=== PATIENT | female | born 1945 | race American Indian/Alaskan Native ===

== ENCOUNTER 2019-05-10 23:44 | Observation (INO) | payer MEDICARE ==
[2019-05-11] MEDS ORDERED: NACL 0.9% 500 ML 500 ML IV ONE (00:06)
[2019-05-11] MEDS ORDERED: KEPPRA 1,000 MG/NS 0.75% 100ML 1,000 MG/100 ML BAG IV ONE (00:07)
[2019-05-11] MEDS ORDERED: ATIVAN IV PRN ×3 (00:08)
--- NOTE | 2019-05-11 00:11 | Emergency Department Report ---
ED General Adult HPI - General Chief complaint: Altered Mental Status Stated complaint: AMS Time Seen by Provider: 05/10/19 23:59 Source: patient, EMS (verbal report received from EMS.ems notes not available at time of chart dictation), RN notes reviewed, old records reviewed Mode of arrival: Stretcher Limitations: Other (patient does not remember what happened) - History of Present Illness Initial comments: This is a 74-year-old female. The patient is not known to this provider previously. Her past medical history includes alcohol abuse and hypertension. She does not have a primary care doctor. Patient brought to the hospital by emergency medical services. As per EMS, patient had an episode of shaking and unresponsiveness, loss consciousness, subsequently woke up, and was confused. This is now resolved. The patient has no physical pain. The patient does not recall what happened. The patient thinks she may have a distant history of seizures. She is not certain. She indicates she does not take any prescription medications. She reports no physical pain at this time. -: Sudden Consistency: now resolved Improves with: none Worsens with: none Associated Symptoms: confusion, seizure, syncope, weakness - Related Data Previous Rx's Medication Instructions Recorded Last Taken Type Folic Acid [Folvite] 1 mg PO QDAY 30 Days tablet 09/22/16 Unknown Rx Multivit-Min/Iron Fum/Folic AC 1 each PO DAILY 30 Days tablet 09/22/16 Unknown Rx [Qxjul-Awlfoqk-Fprseluj Tablet] Thiamine [Vitamin B-1] 100 mg PO QDAY 30 Days tablet 09/22/16 Unknown Rx traMADol [Ultram 50 MG tab] 50 mg PO Q4HR PRN 20 Days tablet 09/22/16 Unknown Rx Allergies Allergy/AdvReac Type Severity Reaction Status Date / Time No Known Allergies Allergy Unverified 10/22/13 09:31 ED Review of Systems ROS: Stated complaint: AMS Other details as noted in HPI Constitutional: malaise Eyes: denies: eye discharge ENT: denies: epistaxis Respiratory: denies: cough Cardiovascular: syncope Gastrointestinal: denies: abdominal pain, nausea, vomiting, hematemesis, melena, hematochezia Genitourinary: denies: urgency Musculoskeletal: denies: back pain Skin: denies: lesions Neurological: weakness, confusion Psychiatric: anxiety ED Past Medical Hx - Past Medical History Hx Hypertension: No Hx Diabetes: No Hx Liver Disease: Yes Hx Seizures: Yes - Surgical History Additional Surgical History: TUBAL LIGATION - Social History Smoking Status: Never Smoker - Medications Home Medications: Home Medications Medication Instructions Recorded Confirmed Last Taken Type Folic Acid [Folvite] 1 mg PO QDAY 30 Days tablet 09/22/16 Unknown Rx Multivit-Min/Iron Fum/Folic AC 1 each PO DAILY 30 Days tablet 09/22/16 Unknown Rx [Dcokv-Wtnvwzs-Acqffcju Tablet] Thiamine [Vitamin B-1] 100 mg PO QDAY 30 Days tablet 09/22/16 Unknown Rx traMADol [Ultram 50 MG tab] 50 mg PO Q4HR PRN 20 Days tablet 09/22/16 Unknown Rx ED Physical Exam - General Limitations: Other (patient does not remember what happened. Patient appears quite tremulous) General appearance: alert, anxious - Head Head exam: Present: atraumatic, normocephalic - Eye Eye exam: Present: normal appearance, EOMI. Absent: nystagmus - ENT ENT exam: Present: normal orophraynx, mucous membranes dry, normal external ear exam - Neck Neck exam: Present: normal inspection, full ROM. Absent: tenderness, meningismus - Respiratory Respiratory exam: Present: normal lung sounds bilaterally. Absent: respiratory distress - Cardiovascular Cardiovascular Exam: Present: regular rate, normal rhythm, normal heart sounds. Absent: bradycardia, tachycardia, irregular rhythm, systolic murmur, diastolic murmur, rubs, gallop - GI/Abdominal GI/Abdominal exam: Present: soft. Absent: distended, tenderness, guarding, rebound, rigid, pulsatile mass - Extremities Exam Extremities exam: Present: normal inspection, full ROM, pedal edema, other (2+ pulses noted in the bilateral upper, lower extremities. Compartments soft. No long bony tenderness. The pelvis is stable.). Absent: calf tenderness - Back Exam Back exam: Present: normal inspection, full ROM. Absent: tenderness, CVA tenderness (R), CVA tenderness (L), paraspinal tenderness, vertebral tenderness - Neurological Exam Neurological exam: Present: alert, other (Extraocular movements intact. Tongue midline. No facial droop. Facial sensation intact to light touch in the V1, V2, V3 distribution bilaterally. 5 and 5 strength in 4 extremities.. Sensation is intact to light touch in 4 extremities.). Absent: motor sensory deficit - Psychiatric Psychiatric exam: Present: anxious - Skin Skin exam: Present: warm, dry, intact, normal color. Absent: rash ED Course Vital Signs 05/11/19 05/11/19 05/11/19 00:11 00:17 00:32 Temperature 98.0 F 98.0 F Pulse Rate 65 65 Respiratory 13 13 12 Rate Blood Pressure 167/76 Blood Pressure 167/76 [Right] O2 Sat by Pulse 99 99 98 Oximetry - Reevaluation(s) Reevaluation #1: 05/11/19 00:13 Differential diagnosis, including but not limited to: Alcohol withdrawal seizure, pneumonia, urinary tract infection, pulmonary embolism, primary seizure, electrolyte derangement, thyroid derangement Assessment and plan: 74-year-old female with episode of loss of consciousness, now awake, question seizure versus syncope, she reports no pulmonary embolism or DVT risk factors, she appears to be anxious and tremulous, she has tongue fasciculations, I suspect alcohol withdrawal. Screening laboratory studies have been ordered, EKG ordered, CT scan of the brain, cervical spine ordered. Do not suspect pulmonary embolism, however, we will obtain a d-dimer to risk stratify the patient, as she endorses no pulmonary embolism or DVT risk factors. Review of old medical records indicates history of ascites, as well as history of alcohol abuse. Reevaluation #2: 05/11/19 01:23 CT scan of brain, cervical spine negative for acute disease. Laboratory studies show lactic acidosis and anion gap. This is likely secondary to seizure. Suspect alcohol related withdrawal seizure as likely etiology of patient's symptoms. I do not suspect invasive bacterial illness at this point in time. Resting comfortably, and in no acute distress. Reevaluation #3: 05/11/19 02:53 CT angiogram chest negative for acute disease. Initial ciwa score 15 Patient will be admitted to the medical service. The Hospital physician, Dr. Dipak Tipton, has accepted the patient - EJ/Peripheral Line Arm R Time Out Performed: Yes Indications: nurses unable to establis, multiple IV sites needed Skin Cleansed in Sterile Fashion: Yes Size: 20 Dressing Placed: Tegaderm Patient Tolerated Procedure: well ED Medical Decision Making - Lab Data Result diagrams: 05/11/19 00:24 05/11/19 00:24 Vital Signs 05/11/19 05/11/19 05/11/19 00:11 00:17 00:32 Temperature 98.0 F 98.0 F Pulse Rate 65 65 Respiratory 13 13 12 Rate Blood Pressure 167/76 Blood Pressure 167/76 [Right] O2 Sat by Pulse 99 99 98 Oximetry - EKG Data -: EKG Interpreted by Me EKG shows normal: sinus rhythm Rate: normal - EKG Data When compared to previous EKG there are: no significant change 05/11/19 00:50 This is a bradycardic rhythm, 56 bpm, this is a sinus rhythm, normal axis, QTC prolonged, atrial enlargement, poor R progression, T-wave inversion V2, V3, V4, this is an abnormal EKG, this EKG is not consistent with ST elevation myocardial infarction, the EKG appears to be unchanged from prior EKG from 09/18/2016. - Radiology Data Radiology results: pending, image reviewed interpreted by me: X-ray of the chest shows hyperinflated lungs, otherwise, no acute disease. Critical care attestation.: If time is entered above; I have spent that time in minutes in the direct care of this critically ill patient, excluding procedure time. ED Disposition Clinical Impression: Metabolic acidosis, increased anion gap (IAG) Alcohol withdrawal seizure Qualifiers: Complication of substance-induced condition: with unspecified complication Qualified Code(s): F10.239 - Alcohol dependence with withdrawal, unspecified; R56.9 - Unspecified convulsions Disposition: - OP ADMIT IP TO THIS HOSP Is pt being admited?: Yes Condition: Fair Referrals: BRANDON GRIER MD [Primary Care Provider] - 3-5 Days
[2019-05-11 00:47] LABS: Basophils % (Auto) 0.3 % (0.0-1.8); Eosinophils % (Auto) 0.3 % (0.0-4.3); Hematocrit 40.1 % (30.3-42.9); Hemoglobin 13.9 gm/dl (10.1-14.3); Lymphocytes # (Auto) 0.7 K/mm3 (1.2-5.4); Lymphocytes % (Auto) 21.7 % (13.4-35.0); Mean Corpuscular HGB Conc 35 % (30-34); Mean Corpuscular Volume 102 fl (79-97); Monocytes # (Auto) 0.1 K/mm3 (0.0-0.8); Monocytes % (Auto) 4.4 % (0.0-7.3); Platelet Count 122 K/mm3 (140-440); Red Blood Count 3.93 M/mm3 (3.65-5.03); Red Cell Distribution Width 12.7 % (13.2-15.2)
[2019-05-11 00:56] LABS: INR 1.25 (0.87-1.13)
[2019-05-11 00:57] LABS: Partial Thromboplastin Time 28.4 Sec. (24.2-36.6)
--- NOTE | 2019-05-11 01:03 | Cat Scan Report ---
PROCEDURE: CT head without contrast. TECHNIQUE: Computerized tomography of the head was performed without contrast material. CT DOSE LENGTH PRODUCT: 927.7 mGycm HISTORY: Altered mental status. COMPARISONS: None. FINDINGS: There is mild cerebral atrophy. The ewing matter and white matter appear normal. There are no mass les ions. There is no intracranial hemorrhage. The calvarium appears intact. The mastoid air cells and vi sualized paranasal sinuses are well aerated. IMPRESSION: Normal study for age. This document is electronically signed by Robbie Pierre MD., May 11 2019 01:01:59 AM ET
[2019-05-11 01:10] LABS: Alanine Aminotransferase 12 units/L (7-56); Albumin 3.2 g/dL (3.9-5); BUN/Creatinine Ratio 8; Blood Urea Nitrogen 4 mg/dL (7-17); Calcium 8.6 mg/dL (8.4-10.2); Hemolysis Index 14
--- NOTE | 2019-05-11 01:20 | Cat Scan Report ---
PROCEDURE: CT cervical spine without contrast. TECHNIQUE: Computerized tomography of the cervical spine was performed from the skull base to T1 wit hout contrast material. CT DOSE LENGTH PRODUCT: 247.9 mGycm HISTORY: Seizure. COMPARISONS: None. FINDINGS: The cervical vertebrae have normal height and alignment. There are no fractures. There is no signific ant subluxation. There is disc space narrowing throughout the cervical spine. There is probably fusio n of the disc space at C5-6. There are small vertebral body osteophytes throughout the spinal canal. The spinal canal is adequately patent. There is osteoarthritis involving many of the facet joints. Th e neural foramina appear adequately patent. The prevertebral soft tissues have normal thickness. IMPRESSION: Degenerative disease as described. No evidence of acute cervical spine injury. This document is electronically signed by Robbie Pierre MD., May 11 2019 01:18:21 AM ET
[2019-05-11] MEDS ORDERED: K-DUR PO ONE (01:23)
[2019-05-11] MEDS ORDERED: D5/0.45NS 1,000 ML IV SCH (02:00)
--- NOTE | 2019-05-11 02:14 | XRay Report ---
PROCEDURE: Chest. TECHNIQUE: Chest radiograph single view. HISTORY: Altered mental status. COMPARISONS: Chest 09/18/2016. FINDINGS: The heart and mediastinum appear normal. The lungs are clear and well-expanded. The lungs are probabl y hyperinflated. There are no pleural effusions. The soft tissues and regional skeleton are unremarka ble. IMPRESSION: COPD. This document is electronically signed by Robbie Pierre MD., May 11 2019 02:12:44 AM ET
--- NOTE | 2019-05-11 02:46 | Cat Scan Report ---
PROCEDURE: CT ANGIO CHEST TECHNIQUE: Computerized tomographic angiography of the chest was performed after the IV injection of iodinated nonionic contrast including image processing. The image data was postprocessed using 2-di mensional multiplanar reformatted (MPR) and 3-dimensional (MIP and/or volume rendered) techniques. Au tomated exposure control, adjustment of mA and/or kV according to patient size, or iterative reconstr uction dose optimization techniques were utilized. CT DOSE LENGTH PRODUCT: 360.4 mGycm HISTORY: syncope + d dimer COMPARISONS: None . FINDINGS: Contrast-enhanced CT angiography of the chest was performed following the intravenous admin istration of iodinated contrast. Sagittal and coronal MIP three-dimensional reformatted images were g enerated. These images demonstrate no CT evidence of pulmonary thromboembolic disease. There is no aortic disse ction. There is no consolidative pulmonary infiltrate. There is no pleural or pericardial effusion. In the upper abdomen, there is a nodular contour of the liver consistent with cirrhotic change. Multi ple gallstones are present. No evidence of acute cholecystitis is seen. There is a left adrenal nodul e 0.8 cm, consistent with adenoma. IMPRESSION: No CT evidence of pulmonary thromboembolic disease This document is electronically signed by Kd Levi MD., May 11 2019 02:44:26 AM ET
[2019-05-11] MEDS: KCL 10MEQ/100ML 10 MEQ/100 ML BAG IV SCH ×5 (03:15→18:07)
[2019-05-11] MEDS ORDERED: ZOFRAN IV PRN (03:17)
[2019-05-11] MEDS ORDERED: SODIUM CHLORIDE FLUSH SYRINGE 10 ML IV PRN (03:17)
[2019-05-11] MEDS ORDERED: TYLENOL PO PRN (03:17)
--- NOTE | 2019-05-11 03:35 | History and Physical Report ---
History of Present Illness Date of examination: 05/11/19 Date of admission: 05/11/2019 Chief complaint: Seizure disorder and alcohol withdrawn History of present illness: Pt is a 74-year-old female with PMHx of alcohol use and hypertension who was brought to the ER by EMS for an episode seizure disorder and unresponsiveness. According to EMS, pt was drinking at home and had an episode of seizure, she woke up confuse, disorientated. In the ER, pt is awake and alert, she states that the last time she had an episode of seizure disorder was in 2015, since then, she had not had any seizure disorder. Pt states that she didn't recall what happened today, she denies headache, denies blurry vision, denies dizziness, denies confusion, denies chest pain. Pt states that she only takes medication for blood pressure at home. Past History Past Medical History: No medical history, hypertension, seizures Past Surgical History: No surgical history Social history: no significant social history Medications and Allergies Allergies Allergy/AdvReac Type Severity Reaction Status Date / Time No Known Allergies Allergy Unverified 10/22/13 09:31 Home Medications Medication Instructions Recorded Confirmed Last Taken Type Folic Acid [Folvite] 1 mg PO QDAY 30 Days tablet 09/22/16 Unknown Rx Multivit-Min/Iron Fum/Folic AC 1 each PO DAILY 30 Days tablet 09/22/16 Unknown Rx [Izvqi-Fuzpbrx-Qaakxkmn Tablet] Thiamine [Vitamin B-1] 100 mg PO QDAY 30 Days tablet 09/22/16 Unknown Rx traMADol [Ultram 50 MG tab] 50 mg PO Q4HR PRN 20 Days tablet 09/22/16 Unknown Rx Active Meds: Active Medications Acetaminophen (Tylenol) 650 mg PO Q4H PRN PRN Reason: Pain MILD(1-3)/Fever >100.5/ULLOA Famotidine (Pepcid) 20 mg IV BID GABBY Dextrose/Sodium Chloride (D5/0.45ns) 1,000 mls @ 0 mls/hr IV DIRECT GABBY Potassium Chloride (Kcl 10meq/100ml) 10 meq in 100 mls @ 100 mls/hr IV Q1H GABBY Stop: 05/11/19 05:59 Last Admin: 05/11/19 03:15 Dose: 100 mls/hr Documented by: Lorazepam (Ativan) 2 mg IV Q1HR PRN PRN Reason: CIWA-Ar 8-15 Lorazepam (Ativan) 4 mg IV Q1HR PRN PRN Reason: CIWA-Ar 16-25 Lorazepam (Ativan) 4 mg IV Q15MIN PRN PRN Reason: CIWA-Ar >25 Ondansetron HCl (Zofran) 4 mg IV Q8H PRN PRN Reason: Nausea And Vomiting Sodium Chloride (Sodium Chloride Flush Syringe 10 Ml) 10 ml IV BID GABBY Sodium Chloride (Sodium Chloride Flush Syringe 10 Ml) 10 ml IV PRN PRN PRN Reason: LINE FLUSH Review of Systems Neurological: seizures Exam - Constitutional Vitals: Temp Pulse Resp BP Pulse Ox 98.0 F 72 13 143/75 98 05/11/19 00:17 05/11/19 03:30 05/11/19 03:30 05/11/19 03:30 05/11/19 03:30 General appearance: Present: mild distress. Absent: no acute distress - EENT Eyes: Present: PERRL ENT: hearing intact - Neck Neck: Present: normal ROM - Respiratory Respiratory effort: normal Respiratory: bilateral: CTA - Cardiovascular Rhythm: regular Heart Sounds: Present: S1 & S2 Peripheral Pulses: within normal limits - Abdominal General gastrointestinal: Present: deferred, non-tender, non-distended Female genitourinary: Present: deferred - Rectal Rectal Exam: deferred - Integumentary Integumentary: Present: warm, dry - Musculoskeletal Musculoskeletal: strength equal bilaterally - Psychiatric Psychiatric: appropriate mood/affect - Neurologic Neurologic: moves all extremities Results - Labs CBC & Chem 7: 05/11/19 00:24 05/11/19 04:23 Labs: Laboratory Last Values WBC 3.1 K/mm3 (4.5-11.0) L 05/11/19 00:24 RBC 3.93 M/mm3 (3.65-5.03) 05/11/19 00:24 Hgb 13.9 gm/dl (10.1-14.3) 05/11/19 00:24 Hct 40.1 % (30.3-42.9) 05/11/19 00:24 MCV 102 fl (79-97) H 05/11/19 00:24 MCH 35 pg (28-32) H 05/11/19 00:24 MCHC 35 % (30-34) H 05/11/19 00:24 RDW 12.7 % (13.2-15.2) L 05/11/19 00:24 Plt Count 122 K/mm3 (140-440) L 05/11/19 00:24 Lymph % (Auto) 21.7 % (13.4-35.0) 05/11/19 00:24 [place] % (Auto) 4.4 % (0.0-7.3) 05/11/19 00:24 Eos % (Auto) 0.3 % (0.0-4.3) 05/11/19 00:24 Baso % (Auto) 0.3 % (0.0-1.8) 05/11/19 00:24 Lymph # 0.7 K/mm3 (1.2-5.4) L 05/11/19 00:24 [place] # 0.1 K/mm3 (0.0-0.8) 05/11/19 00:24 Eos # 0.0 K/mm3 (0.0-0.4) 05/11/19 00:24 Baso # 0.0 K/mm3 (0.0-0.1) 05/11/19 00:24 Seg Neutrophils % 73.3 % (40.0-70.0) H 05/11/19 00:24 Seg Neutrophils # 2.3 K/mm3 (1.8-7.7) 05/11/19 00:24 PT 15.4 Sec. (12.2-14.9) H 05/11/19 00:24 INR 1.25 (0.87-1.13) H 05/11/19 00:24 APTT 28.4 Sec. (24.2-36.6) 05/11/19 00:24 675.75 ng/mlDDU (0-234) H 05/11/19 00:24 Sodium 135 mmol/L (137-145) L 05/11/19 00:24 Potassium 2.9 mmol/L (3.6-5.0) L* 05/11/19 00:24 Chloride 92.8 mmol/L (98-107) L 05/11/19 00:24 Carbon Dioxide 21 mmol/L (22-30) L 05/11/19 00:24 24 mmol/L 05/11/19 00:24 BUN 4 mg/dL (7-17) L 05/11/19 00:24 0.5 mg/dL (0.7-1.2) L 05/11/19 00:24 Estimated GFR > 60 ml/min 05/11/19 00:24 8 % 05/11/19 00:24 Glucose 105 mg/dL (65-100) H 05/11/19 00:24 Lactic Acid 5.40 mmol/L (0.7-2.0) H* 05/11/19 00:24 Calcium 8.6 mg/dL (8.4-10.2) 05/11/19 00:24 Magnesium 1.70 mg/dL (1.7-2.3) 05/11/19 00:24 1.60 mg/dL (0.1-1.2) H 05/11/19 00:24 AST 46 units/L (5-40) H 05/11/19 00:24 ALT 12 units/L (7-56) 05/11/19:24 97 units/L (35-129) 05/11/19 00:24 40.0 umol/L (25-60) 05/11/19 00:24 0.017 ng/mL (0.00-0.029) 05/11/19 00:24 7.9 g/dL (6.3-8.2) 05/11/19 00:24 3.2 g/dL (3.9-5) L 05/11/19 00:24 0.7 % 05/11/19 00:24 TSH 1.070 mlU/mL (0.270-4.200) 05/11/19 00:24 Salicylates < 0.3 mg/dL (2.8-20.0) L 05/11/19 00:24 Acetaminophen < 5.0 ug/mL (10.0-30.0) L 05/11/19 00:24 Plasma/Serum Alcohol < 0.01 % (0-0.07) 05/11/19 00:24 Blood Type B POSITIVE 05/11/19 00:24 Antibody Screen Negative 05/11/19 00:24 Assessment and Plan Assessment and plan: 1. Seizure disorder (likely due to alcohol) 2. Alcohol withdrawal disorder 3. Hypertension 4. Hypokalemia 5. Thrombocytopenia Plan: Admitted to [facility] for seizure disorder Seizure precaution Keppra twice a day Potassium replacement PRN Banana bag daily CIWA protocol with Ativan Further plan per hospital course Advance Directives: Yes VTE prophylaxis?: Chemical Plan of care discussed with patient/family: Yes
[2019-05-11 05:21] LABS: BUN/Creatinine Ratio 8; Blood Urea Nitrogen 4 mg/dL (7-17); Calcium 7.6 mg/dL (8.4-10.2); Hemolysis Index 47
[2019-05-11] MEDS ORDERED: ULTRAM PO PRN (07:04)
[2019-05-11 08:56] LABS: Bilirubin,Urine NEG (Negative); Blood,Urine MOD (Negative); Color,Urine Yellow (Yellow); Protein,Urine <15 mg/dL mg/dL (Negative)
[2019-05-11] MEDS ORDERED: NON-FORMULARY (Multivit-Min/Iron Fum/Folic Ac [Multi-Vitamin-Minerals Tablet] 1 EACH) PO SCH (10:00)
--- NOTE | 2019-05-11 10:59 | Consultation ---
History of Present Illness - Reason for Consult Consult date: 05/11/19 Reason for consult: Mental Health Evaluation Requesting physician: STEPHEN PANTOJA - Chief Complaint Chief complaint: 'I can handle my drinking" - History of Present Psychiatric Illness 73 y.o. AA female who presented to the ER for shaking and loss consciousness, subsequently woke up, and was confused. today the patient was calm and cooperative during the assessment. She stated that she have been drinking (etoh) for several years. She stated that her entire family drink (etoh). She denies participating in rehab services in the past when asked. She was able to state the current/past [place] Presidents and tell me the provider her . She is aware what excessive alcohol (etoh) consumption can do to her body, she stated, "My liver could be damaged." She stated that she can handle her drinking (etoh) and do not need to go to rehab. She was educated on seizures brought on by alcohol withdrawals, she verbalized understanding. She denies SI/HI's, AVH's, and any mood do's. She denies recreational drug use. Medications and Allergies Allergies Allergy/AdvReac Type Severity Reaction Status Date / Time No Known Allergies Allergy Unverified 10/22/13 09:31 Home Medications Medication Instructions Recorded Confirmed Last Taken Type Folic Acid [Folvite] 1 mg PO QDAY 30 Days tablet 09/22/16 Unknown Rx Multivit-Min/Iron Fum/Folic AC 1 each PO DAILY 30 Days tablet 09/22/16 Unknown Rx [Qvdce-Dkrminp-Xfqxhqmi Tablet] Thiamine [Vitamin B-1] 100 mg PO QDAY 30 Days tablet 09/22/16 Unknown Rx traMADol [Ultram 50 MG tab] 50 mg PO Q4HR PRN 20 Days tablet 09/22/16 Unknown Rx Active Meds: Active Medications Acetaminophen (Tylenol) 650 mg PO Q4H PRN PRN Reason: Pain MILD(1-3)/Fever >100.5/ULLOA Famotidine (Pepcid) 20 mg IV BID GABBY Folic Acid (Folvite) 1 mg PO QDAY GABBY Dextrose/Sodium Chloride (D5/0.45ns) 1,000 mls @ 0 mls/hr IV DIRECT GABBY Last Admin: 05/11/19 03:00 Dose: 150 mls/hr Documented by: Levetiracetam (Keppra) 500 mg PO BID GABBY Lorazepam (Ativan) 2 mg IV Q1HR PRN PRN Reason: CIWA-Ar 8-15 Lorazepam (Ativan) 4 mg IV Q1HR PRN PRN Reason: CIWA-Ar 16-25 Lorazepam (Ativan) 4 mg IV Q15MIN PRN PRN Reason: CIWA-Ar >25 Multivitamins/Minerals (Theragran-M Tab) 1 each PO QDAY GABBY Ondansetron HCl (Zofran) 4 mg IV Q8H PRN PRN Reason: Nausea And Vomiting Sodium Chloride (Sodium Chloride Flush Syringe 10 Ml) 10 ml IV BID GABBY Sodium Chloride (Sodium Chloride Flush Syringe 10 Ml) 10 ml IV PRN PRN PRN Reason: LINE FLUSH Thiamine HCl (Vitamin B-1) 100 mg PO QDAY GABBY Tramadol HCl (Ultram) 50 mg PO Q4H PRN PRN Reason: Pain Past psychiatric history - Past Medical History Past Medical History: other (Possible Alcohol Seizures) Past Surgical History: No surgical history - past Psychiatric treatment and history psychiatric treatment history: Denies a mental health hx. fam hx of alcoholism. - Social History Social history: lives with family Mental Status Exam - Vital signs Last Vital Signs Temp 99.1 F 05/11/19 08:35 Pulse 69 05/11/19 08:35 Resp 18 05/11/19 08:35 BP 125/63 05/11/19 08:35 Pulse Ox 99 05/11/19 08:35 - Exam Narrative exam: MSE: Appearance: calm, cooperative Behavior: regular eye contact Speech: regular rate and tone Mood: "okay" Affect: congruent to mood Thought Process: linear Thought Content: denies SI/HI's and AVH's Motor Activity: sitting up in the bed Cognition: A/O x 3 Insight: fair Judgment: fair Results Result Diagrams: 05/11/19 00:24 05/11/19 04:23 Abnormal lab results 05/11/19 05/11/19 05/11/19 Range/Units 00:24 00:24 00:24 WBC 3.1 L (4.5-11.0) K/mm3 MCV 102 H (79-97) fl MCH 35 H (28-32) pg MCHC 35 H (30-34) % RDW 12.7 L (13.2-15.2) % Plt Count 122 L (140-440) K/mm3 Lymph # 0.7 L (1.2-5.4) K/mm3 Seg Neutrophils % 73.3 H (40.0-70.0) % PT 15.4 H (12.2-14.9) Sec. INR 1.25 H (0.87-1.13) D-Dimer 675.75 H (0-234) ng/mlDDU Sodium 135 L (137-145) mmol/L Potassium 2.9 L* (3.6-5.0) mmol/L Chloride 92.8 L (98-107) mmol/L Carbon Dioxide 21 L (22-30) mmol/L BUN 4 L (7-17) mg/dL Creatinine 0.5 L (0.7-1.2) mg/dL Glucose 105 H (65-100) mg/dL Lactic Acid (0.7-2.0) mmol/L Calcium (8.4-10.2) mg/dL Total Bilirubin 1.60 H (0.1-1.2) mg/dL AST 46 H (5-40) units/L Albumin 3.2 L (3.9-5) g/dL Salicylates (2.8-20.0) mg/dL Acetaminophen (10.0-30.0) ug/mL 05/11/19 05/11/19 05/11/19 Range/Units 00:24 00:24 00:24 WBC (4.5-11.0) K/mm3 MCV (79-97) fl MCH (28-32) pg MCHC (30-34) % RDW (13.2-15.2) % Plt Count (140-440) K/mm3 Lymph # (1.2-5.4) K/mm3 Seg Neutrophils % (40.0-70.0) % PT (12.2-14.9) Sec. INR (0.87-1.13) D-Dimer (0-234) ng/mlDDU Sodium (137-145) mmol/L Potassium (3.6-5.0) mmol/L Chloride (98-107) mmol/L Carbon Dioxide (22-30) mmol/L BUN (7-17) mg/dL Creatinine (0.7-1.2) mg/dL Glucose (65-100) mg/dL Lactic Acid 5.40 H* (0.7-2.0) mmol/L Calcium (8.4-10.2) mg/dL Total Bilirubin (0.1-1.2) mg/dL AST (5-40) units/L Albumin (3.9-5) g/dL Salicylates < 0.3 L (2.8-20.0) mg/dL Acetaminophen < 5.0 L (10.0-30.0) ug/mL 05/11/19 05/11/19 05/11/19 Range/Units 04:23 04:23 08:11 WBC (4.5-11.0) K/mm3 MCV (79-97) fl MCH (28-32) pg MCHC (30-34) % RDW (13.2-15.2) % Plt Count (140-440) K/mm3 Lymph # (1.2-5.4) K/mm3 Seg Neutrophils % (40.0-70.0) % PT (12.2-14.9) Sec. INR (0.87-1.13) D-Dimer (0-234) ng/mlDDU Sodium 131 L (137-145) mmol/L Potassium 3.4 L (3.6-5.0) mmol/L Chloride 93.0 L (98-107) mmol/L Carbon Dioxide (22-30) mmol/L BUN 4 L (7-17) mg/dL Creatinine 0.5 L (0.7-1.2) mg/dL Glucose 253 H (65-100) mg/dL Lactic Acid 4.30 H* 4.80 H* (0.7-2.0) mmol/L Calcium 7.6 L (8.4-10.2) mg/dL Total Bilirubin (0.1-1.2) mg/dL AST (5-40) units/L Albumin (3.9-5) g/dL Salicylates (2.8-20.0) mg/dL Acetaminophen (10.0-30.0) ug/mL All other labs normal. Assessment and Plan Assessment and plan: Impression: Alcohol Use DO. Today the patient was calm and cooperative during the assessment. DDx: R/O Bipolar DO, Substance Induced Mood DO Recommendation/Plan: The stated she do not need a referral for rehabs services. Discussed the importance to abstain from alcohol consumption (etoh), she verbalized understanding. Psy sign off. Will staff with Dr Jacques Fisher.
[2019-05-11] MEDS: FOLVITE PO SCH (11:10)
[2019-05-11] MEDS: VITAMIN B-1 PO SCH (11:10)
[2019-05-11] MEDS: THERAGRAN-M Tab PO SCH (11:10)
[2019-05-11] MEDS: SODIUM CHLORIDE FLUSH SYRINGE 10 ML IV SCH ×2 (11:10→21:35)
[2019-05-11] MEDS: PEPCID IV SCH ×2 (11:10→21:35)
[2019-05-11] MEDS: KEPPRA PO SCH ×2 (11:10→21:35)
--- NOTE | 2019-05-11 12:56 | Event Note ---
Date: 05/11/19 patient seen and examined Pt is a 74-year-old female with PMHx of alcohol use and hypertension who was brought to the ER by EMS for an episode seizure disorder and unresponsiveness. cont current Mx as dictated in h and p
[2019-05-12] MEDS: KEPPRA PO SCH (09:14)
[2019-05-12] MEDS: PEPCID IV SCH (09:14)
[2019-05-12] MEDS: FOLVITE PO SCH (09:14)
[2019-05-12] MEDS: VITAMIN B-1 PO SCH (09:14)
[2019-05-12] MEDS: THERAGRAN-M Tab PO SCH (09:14)
[2019-05-12] MEDS: SODIUM CHLORIDE FLUSH SYRINGE 10 ML IV SCH (09:14)
--- NOTE | 2019-05-12 13:47 | Discharge Summary ---
Providers - Providers Date of Admission: 05/11/19 02:57 Date of discharge: 05/12/19 Attending physician: BRENNAN AVENDANO 05/11/19 02:55 Consult to Mental Health [CONS] Urgent Reason For Exam: etoh dependence seizure Place consult to:: [employer] contact worker Notified:: awaiting call back 05/12/19 13:36 Consult to Physician [CONS] Routine Reason For Exam: seizure Consulting Provider: JIM SILVESTRE Physician Instructions: Comment: Primary care physician: BRANDON GRIER Hospitalization Condition: Stable Pertinent studies: CT head CXR CTA chest Hospital course: Pt is a 74-year-old female with PMHx of alcohol use and hypertension who was brought to the ER by EMS for an episode seizure disorder and unresponsiveness. According to EMS, pt was drinking at home and had an episode of seizure, she woke up confuse, disorientated. In the ER, pt was awake and alert, she stated that the last time she had an episode of seizure disorder was in 2016, since then, she had not had any seizure disorder. Her CT head did not show any acute process, started on keppra and discharged home in stable condition with outpt neurology followup. Discharge diagnosis: Breakthrough seizure due to alcohol abuse - This is her second episode, will place on keppra, she'll follow up outpatient with neurology. EEG outpatient Alcohol abuse disorder, counseled Hypertension, stable Hypokalemia, repleted Hyponatremia, improved Thrombocytopenia due to chronic alcohol abuse Disposition: DC-01 TO HOME OR SELFCARE Time spent for discharge: 34 minutes Core Measure Documentation - Palliative Care Palliative Care/ Comfort Measures: Not Applicable - Core Measures Any of the following diagnoses?: none Exam - Constitutional Vitals: Temp Pulse Resp BP Pulse Ox 98.1 F 57 L 18 124/61 100 05/12/19 11:54 05/12/19 11:54 05/12/19 11:54 05/12/19 11:54 05/12/19 11:54 General appearance: Present: no acute distress, other (malnourished) - EENT Eyes: Present: PERRL ENT: hearing intact, clear oral mucosa - Neck Neck: Present: supple, normal ROM - Respiratory Respiratory effort: normal Respiratory: bilateral: CTA - Cardiovascular Heart Sounds: Present: S1 & S2. Absent: rub, click - Extremities Extremities: pulses symmetrical, No edema Peripheral Pulses: within normal limits - Abdominal General gastrointestinal: Present: soft, non-tender, non-distended, normal bowel sounds - Integumentary Integumentary: Present: clear, warm, dry - Musculoskeletal Musculoskeletal: gait normal, strength equal bilaterally - Psychiatric Psychiatric: appropriate mood/affect, intact judgment & insight - Neurologic Neurologic: CNII-XII intact, moves all extremities Plan Activity: advance as tolerated, fall precautions Weight Bearing Status: Weight Bear as Tolerated Diet: regular Additional Instructions: No driving for 6 months. Nutrition boost with meal. EEG outpt Follow up with: BRANDON GRIER MD [Primary Care Provider] - 3-5 Days SARA REAL MD [Staff Physician] - 7 Days Prescriptions: levETIRAcetam [Keppra TAB] 500 mg PO BID #60 tablet
[2019-05-12] MEDS ORDERED: K-DUR PO ONE (13:52)
[2019-05-12 15:42] LABS: BUN/Creatinine Ratio 7; Blood Urea Nitrogen 4 mg/dL (7-17); Calcium 8.1 mg/dL (8.4-10.2); Hemolysis Index 5
[2019-05-12 16:26] VITALS: BP 133/61
== END 2019-05-12 17:20 | disposition home or self-care (01) ==
LOC: ED 23:44 → 4A 05-11 02:57 → INTOOBSV 05-11 02:57
PROVIDERS: ADMIT Internal Medicine; ATTEND Internal Medicine
DX: G40.909 Epilepsy, unspecified, not intractable, without status epilepticus (principal); E87.1 Hypo-osmolality and hyponatremia; F10.239 Alcohol dependence with withdrawal, unspecified; I10 Essential (primary) hypertension; E87.6 Hypokalemia; D69.6 Thrombocytopenia, unspecified; Z79.899 Other long term (current) drug therapy
CPT/HCPCS: 36415; 70450; 71045; 71275; 72125; 80048; 80053; 81001; 82140; 83735; 84443; 84484; 85025; 85379; 85610; 85730; 86850; 86900; 86901; 87040; 87086; 93005; 93010; 96365; 96366; 96375; 96376; 99284; G0378; G0480; J1953; J3480; J7040; Q9967; 80320